=== PATIENT | female | born 1960 | race Caucasian/White ===

== ENCOUNTER 2025-03-31 09:46 | Day surgery (SDC) | payer BC, SELFPAY ==
--- NOTE | 2025-03-31 13:17 | ITS.CL.IMPLP ---
[employer]ist - Implant Loop
Implant Loop
Procedure Report:
LINQ IMPLANTED LOOP RECORDER
Date of Procedure: March 31, 2025
Primary Care Physician: WENDY Schwab
Primary Articulation Officer: Myself
Proocedure performed:
1. Implant LINQ loop recorder
Indication for procedure: 64-year-old woman with a past medical history of paroxysmal atrial fibrillation and prior stroke on DOAC. She has been having increasing palpitations with no clear A-fib on remote monitoring. Placing device for evaluation
of ongoing palpitations and to formally assess A-fib burden.
Description of procedure: After informed consent was obtained,'time out' was called and confirmed, the patient was prepped and draped in a sterile fashion. Lidocaine with epi was used for local anesthesia. A punch incision was made in the fourth
intercostal space midclavicular line. The LINQ device was placed using the placement tool. A single 3-0 absorbable stitch was placed to close the skin track. The punch site was covered with steri-strips.
Complications: None
CONCLUSIONS/RECOMMENDATIONS:
1. Successful placement of LINQ loop recorder
2. Follow-up as scheduled.
== END 2025-03-31 12:02 | disposition home or self-care (01) ==
LOC: CATH 09:46
PROVIDERS: ATTENDING PHYSICIAN Internal Medicine Interventional Cardiology; FAMILY PHYSICIAN Nurse Practitioner
DX: I48.0 Paroxysmal atrial fibrillation (principal); Z86.73 Personal history of transient ischemic attack (TIA), and cerebral infarction without residual deficits
CPT/HCPCS: 33285; C1764